=== PATIENT | male | born 1975 | race Caucasian/White ===

== ENCOUNTER 2017-04-15 10:25 | Day surgery (SDC) | payer SELFPAY ==
[2017-04-15] MEDS ORDERED: RINGER'S SOLUTION,LACTATED 1,000 ML IV PRN (16:24)
[2017-04-15] MEDS ORDERED: ceFAZolin SODIUM 2 GM in DEXTROSE 5 % IN WATER 50 ML IV PRN ×2 (16:37)
[2017-04-15] MEDS ORDERED: RINGER'S SOLUTION,LACTATED 1,000 ML IV ONE (16:54)
[2017-04-15] MEDS ORDERED: PANTOPRAZOLE SODIUM 40 MG in NORMAL SALINE 100 ML IV ONE (17:51)
--- NOTE | 2017-04-15 18:15 | OR ---
Operative Report - Dictated Report Narrative: Operative Report Date of operation: 04/15/2017 Preoperative diagnosis: Esophageal obstruction from food bolus Postoperative diagnosis: Same (relieved). Hiatal hernia, distal esophagitis Operation: EGD with removal of foreign body in the esophagus (impacted meat bolus) Surgeon: Dr Gross Anesthesia: Gen. solitario Roldan CRNA Indications for procedure: The patient is a 41-year-old male who was eating chicken last night. He had the sudden inability to swallow with repeated dry heaves. He is currently unable to swallow water or saliva. Findings: Impacted meat bolus in the distal esophagus, successfully fragmented and passed. Hiatal hernia, distal esophagitis. Narrative of procedure: The patient was identified preoperatively, and prior to the administration of anesthetic a multidisciplinary timeout was observed With the patient in the recumbent position, rapid sequence endotracheal intubation was performed and general anesthetic administered. The flexible fiberoptic gastroscope was advanced into the posterior pharynx which appeared normal. The endotracheal tube was seen to be in good position. The supraglottic larynx appeared normal. The scope was advanced under direct vision into the proximal esophagus which appeared normal. The proximal esophagus appeared freely distensible with normal mucosa. There was an impacted meat bolus distally. The proximal portion of the bolus was grasped with a snare and a portion withdrawn in conjunction with the scope. The scope was then readvanced to the bolus which was additionally fragmented with a 3 prong grasper until it could be passed distally into the stomach. The scope was then advanced into the stomach which was suctioned of bile. The gastric mucosa appeared grossly normal as did the pylorus. The stomach was emptied of insufflated air and the scope withdrawn slowly to the GE junction. There was a sliding hiatal hernia and inflammation at the GE junction, however the area was widely patulous. Scope was then withdrawn from the patient and the procedure terminated. The patient tolerated the anesthetic and procedure well without complication. He was transferred to the recovery room awake, extubated, and in stable condition. The patient remained stable throughout a period of postoperative observation, was able to tolerate po intake, and was up without assistance. I shared the operative findings with him and his , and he was given copies of the photographs which appear in the medical record. He was given a single dose of Protonix 40 mg IV prior to discharge. He was discharged home with instructions not to engage in hazardous activity today, but may return to normal activity tomorrow and advance diet as tolerated. He will be contacted tomorrow to check on his progress and arrange postoperative follow-up, as he will need a proton pump inhibitor and possible future EGD to re-examine the GE junction after inflammation resolves. Reviewed and electronically signed
[2017-04-17 09:13] VITALS: BP 131/85
== END 2017-04-15 10:26 | disposition home or self-care (01) ==
LOC: AMB 10:25
PROVIDERS: ATTEND Surgery
PROC: 0DC58ZZ Extirpation of Matter from Esophagus, Via Natural or Artificial Opening Endoscopic (ICD-10-PCS; principal; 2017-04-15)
DX: Y93.89 Activity, other specified; T18.128A Food in esophagus causing other injury, initial encounter; K22.2 Esophageal obstruction; K20.9 Esophagitis, unspecified; X58.XXXA Exposure to other specified factors, initial encounter; F17.220 Nicotine dependence, chewing tobacco, uncomplicated; K44.9 Diaphragmatic hernia without obstruction or gangrene